=== PATIENT | female | born 1965 | race Caucasian/White ===

== ENCOUNTER 2018-01-15 18:12 | Inpatient (IN) ==
[2018-01-15] MEDS ORDERED: PANTOPRAZOLE 40 MG VIAL IV STA (21:56)
[2018-01-15] MEDS ORDERED: HYDROmorphone 2 MG/1 ML VIAL IV STA (21:56)
[2018-01-15] MEDS ORDERED: ONDANSETRON 4 MG/2 ML VIAL IV STA (21:56)
[2018-01-15] MEDS ORDERED: KETOROLAC 30 MG/1 ML VIAL IV STA (21:56)
[2018-01-15] MEDS ORDERED: SODIUM CHLORIDE 0.9% 1,000 ML IV STA (21:56)
[2018-01-15] MEDS ORDERED: ALUM/MAG/SIMETH/LIDO VISC 1:1 30 ML BOTTLE PO STA (21:56)
[2018-01-15] MEDS ORDERED: HYDROmorphone 2 MG/1 ML VIAL ONE (22:25)
[2018-01-15] MEDS ORDERED: KETOROLAC 30 MG/1 ML VIAL ONE (22:25)
[2018-01-15] MEDS ORDERED: ALUM/MAG/SIMETH/LIDO VISC 1:1 30 ML BOTTLE PO ONE (22:25)
[2018-01-15] MEDS ORDERED: PANTOPRAZOLE 40 MG VIAL IV ONE (22:25)
[2018-01-15] MEDS ORDERED: ONDANSETRON 4 MG/2 ML VIAL ONE (22:25)
[2018-01-15 23:03] LABS: Basophils % 0.2 % (0.0-0.8); Hematocrit 35.2 VOL% (35.7-47.0); Hemoglobin 11.8 GM/DL (12.0-16.0); Immature Granulocytes % 0.3 %; Immature Granulocytes Absolute 0.03 #; Lymphocytes # 0.3 10*3/uL (1.4-4.0); Lymphocytes % 2.9 % (21.3-54.2); Mean Corpuscular HGB Conc 33.5 GM/DL (32-36); Mean Corpuscular Hemoglobin 28 PG (27-34); Mean Corpuscular Volume 84.4 FL (87-102); Mean Platelet Volume 10.7 FL (9.6-12.0); Monocytes # 0.2 10*3/uL (0.11-0.8); Neutrophils # 10.2 10*3/uL (1.4-7.4); Neutrophils % 94.6 % (38.7-73.9); Platelet Count 194 T/CUMM (130-400); Red Blood Count 4.17 MC/CUMM (3.8-5.5); Red Cell Distribution Width 13.2 % (9.3-17.3); White Blood Count 10.8 T/CUMM (4-12)
[2018-01-15 23:18] LABS: Lactic Acid 3.4 MMOL/L (0.4-2.0)
[2018-01-15 23:19] LABS: Alanine Aminotransferase 26 U/L (13-56); Albumin 3.7 G/DL (3.4-5.0); Alkaline Phosphatase 49 U/L (45-117); Amylase 28 U/L (25-115); Aspartate Amino Transferase 28 U/L (0-37); Blood Urea Nitrogen 11 MG/DL (7-18); Calcium 8.1 MG/DL (8.5-10.1); Glucose 133 MG/DL (74-106); Osmolality,Calculated 268.2 MOS/KG (273-304); Potassium 3.4 MMOL/L (3.5-5.1); Sodium 134 MMOL/L (136-145); Total Protein 6.9 G/DL (6.4-8.3); Troponin I Only < 0.015 NG/ML (0.00-0.045)
[2018-01-15 23:25] LABS: Band Neutrophils 8 % (0-10); Lymphocytes 7 % (20-55); Platelet Estimate Normal; Segmented Neutrophils 83 % (50-85); Total Cells Counted 100
[2018-01-15] MEDS ORDERED: MAGNESIUM SULF RIDER 2 GM in PREMIX 1 EACH IV STA (23:41)
[2018-01-15] MEDS ORDERED: SODIUM CHLORIDE 0.9% 2,200 ML IV ONE (23:41)
[2018-01-15] MEDS ORDERED: cefTRIAXone 1,000 MG in SODIUM CHLORIDE 0.9% 100 ML IV STA (23:51)
[2018-01-15 23:55] LABS: Apearance,Urine CLEAR (Clear); Bilirubin,Urine Negative (Negative); Blood, Urine Negative (Negative); Glucose,Urine (UA) Negative (Negative); Ketones,Urine 20 mg/dL (Negative); Mucus,Urine Occasional /LPF (Occasional); Nitrite,Urine Positive (Negative); Protein,Urine Negative; RBC,Urine 12 /HPF (0-4); Squamous Epithelial Cell,Urine Occasional /HPF (0-10); Urine Color Amber (Yellow); Urine Specific Gravity 1.012 (1.001-1.035); WBC,Urine 16 /HPF (0-6)
[2018-01-15] MEDS ORDERED: PIPERACILLIN/TAZOBACTAM 3,375 MG VIAL IV ONE (23:56)
[2018-01-16] MEDS: PIPERACILLIN/TAZOBACTAM 3,375 MG in SODIUM CHLORIDE 0.9% 100 ML IV SCH ×3 (00:26→16:37)
[2018-01-16] MEDS ORDERED: cefTRIAXone 1,000 MG VIAL ONE (01:53)
[2018-01-16] MEDS ORDERED: LEVOFLOXACIN INJ 500 MG in PREMIX 1 EACH IV SCH (04:00)
[2018-01-16] MEDS: SODIUM CHLORIDE 0.9% 1,000 ML IV SCH (04:18)
[2018-01-16 04:42] LABS: Basophils % 0.1 % (0.0-0.8); Hematocrit 32.3 VOL% (35.7-47.0); Hemoglobin 10.8 GM/DL (12.0-16.0); Immature Granulocytes % 0.7 %; Immature Granulocytes Absolute 0.07 #; Lymphocytes # 0.2 10*3/uL (1.4-4.0); Lymphocytes % 2.3 % (21.3-54.2); Mean Corpuscular HGB Conc 33.4 GM/DL (32-36); Mean Corpuscular Hemoglobin 28 PG (27-34); Mean Corpuscular Volume 84.3 FL (87-102); Mean Platelet Volume 10.8 FL (9.6-12.0); Monocytes # 0.3 10*3/uL (0.11-0.8); Monocytes % 2.6 % (1.7-12.7); Neutrophils # 9.6 10*3/uL (1.4-7.4); Neutrophils % 94.3 % (38.7-73.9); Platelet Count 177 T/CUMM (130-400); Red Blood Count 3.83 MC/CUMM (3.8-5.5); Red Cell Distribution Width 13.5 % (9.3-17.3); White Blood Count 10.2 T/CUMM (4-12)
[2018-01-16 05:16] LABS: Lactic Acid 2.4 MMOL/L (0.4-2.0); Lactic Acid 3.2 MMOL/L (0.4-2.0)
[2018-01-16 05:17] LABS: Albumin 3.5 G/DL (3.4-5.0); Bilirubin,Total 1.1 MG/DL (0.2-1.0); Calcium 7.7 MG/DL (8.5-10.1); Potassium 3.6 MMOL/L (3.5-5.1); Total Protein 6.2 G/DL (6.4-8.3)
[2018-01-16 05:18] LABS: Band Neutrophils 9 % (0-10); Lymphocytes 2 % (20-55); Platelet Estimate Adequate; Segmented Neutrophils 88 % (50-85); Total Cells Counted 100
[2018-01-16] MEDS ORDERED: CALCIUM GLUCONATE 2,000 MG in SODIUM CHLORIDE 0.9% 50 ML IV ONE (07:30)
[2018-01-16] MEDS ORDERED: CIPROFLOXACIN INJ 400 MG in PREMIX 1 EACH IV SCH (08:00)
[2018-01-16] MEDS: ONDANSETRON 4 MG/2 ML VIAL IV PRN (08:19)
[2018-01-16] MEDS: HYDROmorphone 2 MG/1 ML VIAL IV PRN ×3 (08:20→18:09)
[2018-01-16] MEDS: PANTOPRAZOLE 40 MG VIAL IV SCH (08:24)
[2018-01-16] MEDS: DOCUSATE SODIUM 100 MG CAPSULE PO SCH ×2 (09:40→20:37)
[2018-01-16] MEDS ORDERED: ACETAMINOPHEN 325 MG TABLET PO ONE (20:10)
[2018-01-16] MEDS: CIPROFLOXACIN INJ 400 MG in PREMIX 1 EACH IV SCH (22:10)
[2018-01-17] MEDS: PIPERACILLIN/TAZOBACTAM 3,375 MG in SODIUM CHLORIDE 0.9% 100 ML IV SCH ×3 (01:27→17:19)
[2018-01-17] MEDS: HYDROmorphone 2 MG/1 ML VIAL IV PRN (04:17)
[2018-01-17] MEDS: CIPROFLOXACIN INJ 400 MG in PREMIX 1 EACH IV SCH ×3 (06:33→22:47)
[2018-01-17] MEDS ORDERED: ONDANSETRON 4 MG/2 ML VIAL ONE ×3 (07:55→10:17)
[2018-01-17] MEDS: ONDANSETRON 4 MG/2 ML VIAL IV PRN ×2 (08:02→15:09)
[2018-01-17] MEDS ORDERED: LIDOCAINE 2% TOP JELLY 20 ML VIAL INTRAURETH ONE ×2 (09:13→09:17)
[2018-01-17] MEDS ORDERED: oxyCODONE/ACETAMINOPHEN 5-325 MG TABLET PO PRN ×2 (09:33→09:40)
[2018-01-17] MEDS ORDERED: MIDAZOLAM 2 MG/2 ML VIAL ONE (09:39)
[2018-01-17] MEDS ORDERED: PROMETHAZINE 25 MG/1 ML VIAL ONE (09:39)
[2018-01-17] MEDS ORDERED: PROPOFOL 200 MG/20 ML VIAL IV ONE (09:39)
[2018-01-17] MEDS ORDERED: SODIUM CHLORIDE 0.9% 100 ML IV ONE (09:40)
[2018-01-17] MEDS ORDERED: MEPERIDINE 25 MG/1 ML VIAL ONE (10:17)
[2018-01-17] MEDS ORDERED: ONDANSETRON 4 MG/2 ML VIAL IV PRN (10:25)
[2018-01-17] MEDS ORDERED: MEPERIDINE 25 MG/1 ML VIAL IV PRN (10:25)
[2018-01-17] MEDS: DOCUSATE SODIUM 100 MG CAPSULE PO SCH ×2 (11:19→20:57)
[2018-01-17] MEDS: PANTOPRAZOLE 40 MG VIAL IV SCH (11:52)
[2018-01-17] MEDS: SODIUM CHLORIDE 0.9% 1,000 ML IV SCH (17:19)
[2018-01-18] MEDS: ONDANSETRON 4 MG/2 ML VIAL IV PRN (00:23)
[2018-01-18] MEDS: HYDROmorphone 2 MG/1 ML VIAL IV PRN (00:43)
[2018-01-18] MEDS: PIPERACILLIN/TAZOBACTAM 3,375 MG in SODIUM CHLORIDE 0.9% 100 ML IV SCH ×2 (00:46→08:37)
[2018-01-18] MEDS: CIPROFLOXACIN INJ 400 MG in PREMIX 1 EACH IV SCH (06:45)
[2018-01-18] MEDS: DOCUSATE SODIUM 100 MG CAPSULE PO SCH ×2 (08:35→20:25)
[2018-01-18] MEDS: PANTOPRAZOLE 40 MG VIAL IV SCH (08:36)
[2018-01-18] MEDS: PROMETHAZINE 25 MG/1 ML VIAL IM PRN ×2 (08:45→15:47)
[2018-01-18] MEDS: POLYETHYLENE GLYCOL POWDER 17 GM PACK PO SCH (09:44)
[2018-01-18] MEDS: cefTRIAXone 1,000 MG in SYRINGE 1 EACH IV SCH (13:38)
[2018-01-18] MEDS: SODIUM CHLORIDE 0.9% 1,000 ML IV SCH (20:23)
[2018-01-19] MEDS: PANTOPRAZOLE 40 MG VIAL IV SCH (08:55)
[2018-01-19] MEDS: cefTRIAXone 1,000 MG in SYRINGE 1 EACH IV SCH (08:56)
[2018-01-19] MEDS: POLYETHYLENE GLYCOL POWDER 17 GM PACK PO SCH (09:02)
[2018-01-19] MEDS: DOCUSATE SODIUM 100 MG CAPSULE PO SCH (09:02)
[2018-01-19 11:49] VITALS: BP 119/40
== END 2018-01-19 13:23 | disposition home or self-care (01) | DRG 872 ==
LOC: N.ED 18:12 → N.EDINP 01-16 02:20 → N.2E 01-16 02:52
PROVIDERS: ADMIT Internal Medicine Geriatric Medicine; ATTEND Internal Medicine Geriatric Medicine

== ENCOUNTER 2018-02-18 02:16 | Observation (INO) ==
[2018-02-18] MEDS ORDERED: MORPHINE 2 MG/1 ML SYRINGE IV ONE (03:18)
[2018-02-18] MEDS ORDERED: SODIUM CHLORIDE 0.9% 1,000 ML IV STA (03:18)
[2018-02-18] MEDS ORDERED: ONDANSETRON 4 MG/2 ML VIAL IV ONE (03:18)
[2018-02-18] MEDS ORDERED: ACETAMINOPHEN 325 MG TABLET PO ONE (03:18)
[2018-02-18 03:21] LABS: Basophils % 0.2 % (0.0-0.8); Hematocrit 34.4 VOL% (35.7-47.0); Hemoglobin 11.4 GM/DL (12.0-16.0); Immature Granulocytes % 0.3 %; Immature Granulocytes Absolute 0.04 #; Lymphocytes # 0.4 10*3/uL (1.4-4.0); Lymphocytes % 2.8 % (21.3-54.2); Mean Corpuscular HGB Conc 33.1 GM/DL (32-36); Mean Corpuscular Hemoglobin 28 PG (27-34); Mean Corpuscular Volume 84.1 FL (87-102); Mean Platelet Volume 10.9 FL (9.6-12.0); Monocytes # 0.9 10*3/uL (0.11-0.8); Neutrophils # 11.8 10*3/uL (1.4-7.4); Neutrophils % 89.7 % (38.7-73.9); Platelet Count 157 T/CUMM (130-400); Red Blood Count 4.09 MC/CUMM (3.8-5.5); Red Cell Distribution Width 13.7 % (9.3-17.3); White Blood Count 13.1 T/CUMM (4-12)
[2018-02-18 03:37] LABS: Apearance,Urine Slightly Hazy (Clear); Bacteria,Urine Many /HPF (Few); Bilirubin,Urine Negative (Negative); Blood, Urine Moderate mg/dL (Negative); Glucose,Urine (UA) Negative (Negative); Ketones,Urine 5 mg/dL (Negative); Mucus,Urine Occasional /LPF (Occasional); Nitrite,Urine Positive (Negative); Protein,Urine 30 MG/DL; RBC,Urine 17 /HPF (0-4); Squamous Epithelial Cell,Urine Occasional /HPF (0-10); Urine Color Yellow (Yellow); Urine Specific Gravity 1.017 (1.001-1.035); Urine Urobilinogen < 2.0 EU/DL (0.2-1.0); WBC,Urine 47 /HPF (0-6)
[2018-02-18 03:42] LABS: Albumin 3.6 G/DL (3.4-5.0); Bilirubin,Total 0.6 MG/DL (0.2-1.0); Calcium 8.5 MG/DL (8.5-10.1); Osmolality,Calculated 262.7 MOS/KG (273-304); Potassium 3.8 MMOL/L (3.5-5.1); Total Protein 7.4 G/DL (6.4-8.3)
[2018-02-18] MEDS ORDERED: ONDANSETRON 4 MG/2 ML VIAL ONE ×2 (03:49→07:47)
[2018-02-18] MEDS ORDERED: MORPHINE 10 MG/1 ML VIAL ONE (03:49)
[2018-02-18] MEDS ORDERED: ACETAMINOPHEN 325 MG TABLET ONE (03:49)
[2018-02-18 03:52] LABS: Band Neutrophils 7 % (0-10); Lymphocytes 3 % (20-55); Segmented Neutrophils 85 % (50-85); Total Cells Counted 100
[2018-02-18 03:53] LABS: Hypochromasia 1+; Platelet Estimate Normal
[2018-02-18] MEDS ORDERED: cefTRIAXone 1,000 MG in SODIUM CHLORIDE 0.9% 100 ML IV STA (05:18)
[2018-02-18] MEDS ORDERED: SODIUM CHLORIDE 0.9% 100 ML IV ONE (05:21)
[2018-02-18] MEDS ORDERED: cefTRIAXone 1,000 MG VIAL ONE (05:21)
[2018-02-18] MEDS ORDERED: PROMETHAZINE 25 MG/1 ML VIAL IM PRN (05:46)
[2018-02-18] MEDS ORDERED: BISACODYL 5 MG TABLET PO PRN (05:46)
[2018-02-18] MEDS ORDERED: ONDANSETRON 4 MG/2 ML VIAL IV PRN ×2 (05:46→07:53)
[2018-02-18] MEDS ORDERED: MORPHINE 2 MG/1 ML SYRINGE IV PRN (05:46)
[2018-02-18] MEDS ORDERED: HYDROmorphone 2 MG/1 ML VIAL IV PRN (05:46)
[2018-02-18] MEDS ORDERED: ACETAMINOPHEN 325 MG TABLET PO PRN (05:46)
[2018-02-18] MEDS ORDERED: SCOPOLAMINE 1.5 MG PATCH TRANSDERM ONE (06:27)
[2018-02-18] MEDS ORDERED: PROPOFOL 200 MG/20 ML VIAL IV ONE (07:46)
[2018-02-18] MEDS ORDERED: MIDAZOLAM 2 MG/2 ML VIAL ONE (07:47)
[2018-02-18] MEDS ORDERED: PHENYLEPHRINE 1 MG/10 ML SYRINGE IV ONE (07:47)
[2018-02-18] MEDS ORDERED: DEXAMETHASONE 10 MG/1 ML VIAL ONE (07:47)
[2018-02-18] MEDS ORDERED: KETOROLAC 30 MG/1 ML VIAL ONE (07:47)
[2018-02-18] MEDS ORDERED: MORPHINE 10 MG/1 ML VIAL IV PRN (07:53)
[2018-02-18] MEDS: cefTRIAXone 1,000 MG in SYRINGE 1 EACH IV SCH (07:56)
[2018-02-18] MEDS: ESTRADIOL 1 MG TABLET PO SCH (09:54)
[2018-02-18] MEDS: SODIUM CHLORIDE 0.45% 1,000 ML IV SCH ×2 (09:54→17:09)
[2018-02-18] MEDS: CETIRIZINE 10 MG TABLET PO SCH (09:54)
[2018-02-19] MEDS: SODIUM CHLORIDE 0.45% 1,000 ML IV SCH ×2 (02:00→09:01)
[2018-02-19] MEDS: cefTRIAXone 1,000 MG in SYRINGE 1 EACH IV SCH (06:00)
[2018-02-19] MEDS: ESTRADIOL 1 MG TABLET PO SCH (10:10)
[2018-02-19] MEDS: CETIRIZINE 10 MG TABLET PO SCH (10:11)
[2018-02-19 11:13] VITALS: BP 129/89
[2018-02-19] MEDS ORDERED: MAGNESIUM HYDROXIDE SUSP 30 ML UDCUP PO ONE (11:45)
== END 2018-02-19 13:41 | disposition home or self-care (01) ==
LOC: N.EDINP 02:16 → N.ED 02:16 → N.5E 06:33
PROVIDERS: ADMIT Urology; ATTEND Urology